=== PATIENT | female | born 1985 | race African-American/Black ===

== ENCOUNTER 2019-04-10 22:17 | Inpatient (IN) | payer OTHER ==
[2019-04-10] MEDS ORDERED: DEXTROSE 5%-LACTATED RINGERS 500 ML IV ONE (23:45)
[2019-04-11] MEDS ORDERED: DEXTROSE 5%-LACTATED RINGERS 500 ML IV ONE (00:45)
--- NOTE | 2019-04-11 01:43 | PDOC ---
Documentation entered by Ifrah Pandey SCRIBE, acting as scribe for Korina Mosquera MD. Korina Mosquera MD: This documentation has been prepared by the Katherin dorsey Sammi, SCRIBE, under my direction and personally reviewed by me in its entirety. I confirm that the documentation accurately reflects all work, treatment, procedures, and medical decision making performed by me. History of Present Illness - General Chief Complaint: Pain Stated Complaint: pergnant - History of Present Illness Initial Comments: 04/10/19 23:22 The patient is a 34 year old, 39 weeks , female who presents to the emergency department for evaluation pelvic cramping. The patient initially complains of thigh pain but proceeded to complain of pelvic cramping. Because the patient is 39 weeks , sent to L&D. Denies pelvic bleeding. Denies chest pain or shortness of breath. Denies nausea or vomiting. Past History - Past Medical History Allergies/Adverse Reactions: Allergies Allergy/AdvReac Type Severity Reaction Status Date / Time No Known Allergies Allergy Verified 04/10/19 23:27 Home Medications: Ambulatory Orders Pnv No.95/Ferrous Fum/Folic AC [ Vitamin Tablet] 1 tab PO DAILY COPD: No - Psycho Social/Smoking Cessation Hx Smoking History: Never smoked Review of Systems - Review of Systems Comments:: 04/10/19 23:24 GENERAL/CONSTITUTIONAL: No fever or chills. No weakness. CARDIOVASCULAR: No chest pain or shortness of breath. RESPIRATORY: No cough, wheezing, or hemoptysis. GASTROINTESTINAL: (+)abdominal cramping. No nausea, vomiting, diarrhea or constipation. GENITOURINARY: No dysuria, frequency, or change in urination. MUSCULOSKELETAL: No joint or muscle swelling or pain. No neck or back pain. SKIN: No rash NEUROLOGIC: No headache, vertigo, loss of consciousness, or change in strength/ sensation. *Physical Exam - Vital Signs Last Vital Signs Temp Pulse Resp BP Pulse Ox 98.5 F 88 19 120/65 100 04/10/19 22:18 04/10/19 22:18 04/10/19 22:18 04/10/19 22:18 04/10/19 22:18 - Physical Exam 04/10/19 23:26 seated in wheel chair, complaining of abdominal cramping GENERAL: Awake, alert, and fully oriented, in no acute distress HEAD: No signs of trauma EYES: PERRLA, EOMI, sclera anicteric, conjunctiva clear ENT: Auricles normal inspection, hearing grossly normal, nares patent, oropharynx clear without exudates. Moist mucosa LUNGS: Breath sounds equal, clear to auscultation bilaterally. HEART: Regular rate and rhythm, no murmurs, rubs or gallops ABDOMEN: (+)protuberant abdomen. EXTREMITIES: Normal range of motion, no edema. No clubbing or cyanosis. No cords, erythema, or tenderness NEUROLOGICAL: Cranial nerves II through XII grossly intact. Normal speech, normal gait SKIN: Warm, Dry, normal turgor, no rashes or lesions noted. ED Treatment Course - LABORATORY CBC & Chemistry Diagram: 04/11/19 02:45 04/11/19 02:45 Medical Decision Making - Medical Decision Making 04/11/19 01:46 This 34-year-old female who is 39 weeks presented initially stating that she has some thigh pain but very quickly she complained of pelvic cramping and was taken upstairs to labor and deliver imp: pelvic cramping/39 weeks / probable labor PLAN L and D Discharge - Discharge Information Problems reviewed: Yes Clinical Impression/Diagnosis: Abdominal discomfort Condition: Stable Disposition: HOME - Follow up/Referral - Patient Discharge Instructions - Post Discharge Activity
[2019-04-11] MEDS ORDERED: ACETAMINOPHEN 325 MG TABLET (FP) ONE (02:16)
[2019-04-11] MEDS ORDERED: ACETAMINOPHEN 325 MG TABLET (FP) PO ONE (02:30)
[2019-04-11] MEDS ORDERED: ELECTROLYTE-148 SOLN 500 ML IV ONE (02:45)
[2019-04-11] MEDS ORDERED: CITRIC ACID/SODIUM CITRATE 30 ML UNIT-DOSE CUP PO ONE (02:45)
[2019-04-11 03:01] LABS: BASO % 0.9 % (0-2.0); EOS % 0.6 % (0-4.5); HEMATOCRIT 35.7 % (32.4-45.2); HEMOGLOBIN 12.3 GM/dL (10.7-15.3); LYMPH % 28.7 % (8-40); MCH 31.9 pg (25.7-33.7); MCHC 34.5 g/dl (32.0-36.0); MEAN CELL VOLUME 92.5 fl (80-96); MEAN PLT VOLUME 10.6 fl (7.5-11.1); MONO % 9.3 % (3.8-10.2); NEUT % 60.5 % (42.8-82.8); PLATELET COUNT 183 K/MM3 (134-434); RBC 3.86 M/mm3 (3.60-5.2); RDW 13.9 % (11.6-15.6)
[2019-04-11 03:13] LABS: INR 0.88 (0.83-1.09); PROTHROMBIN TIME (PATIENT) 10.4 SEC (9.7-13.0)
[2019-04-11] MEDS ORDERED: ELECTROLYTE-148 SOLN 1,000 ML IV SCH (03:15)
[2019-04-11 03:16] LABS: ACTIVATED PTT 29.2 SECONDS (25.2-36.5)
[2019-04-11 03:23] VITALS: BMI 38.2
[2019-04-11 03:41] LABS: BLOOD UREA NITROGEN 5.6 mg/dL (7-18); CALCIUM 8.3 mg/dL (8.5-10.1); CREATININE 0.7 mg/dL (0.55-1.3); POTASSIUM 3.9 mmol/L (3.5-5.1)
[2019-04-11] MEDS ORDERED: ONDANSETRON 4 MG/2 ML VIAL IVPUSH PRN (04:34)
[2019-04-11] MEDS ORDERED: KETOROLAC TROMETHAMINE 30 MG/1 ML VIAL ONE (04:47)
[2019-04-11] MEDS ORDERED: DEXAMETHASONE SOD PHOSPHATE 4 MG/1 ML VIAL ONE (04:47)
[2019-04-11] MEDS ORDERED: OXYTOCIN 10 UNITS/ML VIAL ONE (04:47)
[2019-04-11] MEDS ORDERED: LIDO 2%/EPI 1:200000 PRESRVFRE (20 ML SDVIAL) ONE (05:19)
[2019-04-11] MEDS ORDERED: ceFAZolin SODIUM 1 GM VIAL ONE (05:24)
[2019-04-11] MEDS ORDERED: SODIUM CHLORIDE 0.9% P/F 10 ML VIAL IJ ONE (05:24)
[2019-04-11] MEDS ORDERED: SUCCINYLCHOLINE CHLORIDE 200 MG/10 ML SYRINGE ONE (05:27)
[2019-04-11] MEDS ORDERED: PROPOFOL 20 ML ONE (05:27)
[2019-04-11] MEDS ORDERED: PHENYLEPHRINE HCL 10 MG/1 ML SINGLE DOSE VIAL ONE ×2 (05:38)
[2019-04-11] MEDS ORDERED: LIDOCAINE HCL 2% 100 MG/5 ML DISP.SYRIN ONE (05:43)
[2019-04-11] MEDS ORDERED: MIDAZOLAM HCL 2 MG/2 ML SINGLE DOSE VIAL ONE (05:45)
--- NOTE | 2019-04-11 05:56 | PN ---
Progress Note (short form) - Note Progress Note: Attended Rpt C/S for this 34yrs old mother who presented to in labor. PNL- neg. NRFHT delivered - clear fluid, cried soon after suctioned/ dried cord 3V 9/9 CAN x 1 rtemains clinically stable on RA [place] well perfused EXAM: HEENT- Normocrphalic/ AFOF Chest B/L symm COR S1-S2 nl , Nl Female FROM Good tone and activity. RNBC watch for resp distrerss Encourage BF/ Bonding
[2019-04-11] MEDS ORDERED: oxyCODONE HCL 5 MG TABLET PO PRN (06:22)
[2019-04-11] MEDS ORDERED: BENZOCAINE 20% 57 GM BOTTLE TP PRN (06:22)
[2019-04-11] MEDS ORDERED: WITCH HAZEL 50% (TUCKS) 40 PAD/JAR PAD TP PRN (06:22)
[2019-04-11] MEDS ORDERED: diphenhydrAMINE HCL 25 MG CAPSULE (FP) PO PRN (06:22)
[2019-04-11] MEDS ORDERED: BENZOCAINE 28 GM HEMORRHOIDAL OINTMENT PR PRN (06:22)
[2019-04-11] MEDS ORDERED: METHYLERGONOVINE MALEATE 0.2 MG/1 ML AMP IM PRN (06:22)
--- NOTE | 2019-04-11 06:29 | HP ---
Past Medical History - Primary Care Physician PCP:: Jorge Jaramillo - Admission Chief Complaint: 38 weeks, labor, previous c/s, tachycardia History of Present Illness: 38.6 weeks, previous c/s,c/o contraction , cx 1 cm 70 vx -3 fhr cat 2 with tachycardia good BTBV , no rom ,no bleeding History Source: Patient Limitations to Obtaining History: No Limitations - Past Medical History ...: 2 ...Para: 1 ...Term: 1 ...: 0 ...Spon : 0 ...Induced : 0 ...Multiple Gestation: 0 ...LMP: 07/14/18 ... Weeks Gestation by Dates: 38.6 ...EDC by Dates: 04/20/19 - Past Surgical History Past Surgical History: Yes: Hx Myomectomy: No Hx Transabdominal Cerclage: No - Smoking History Smoking history: Never smoked Have you smoked in the past 12 months: No - Alcohol/Substance Use Hx Alcohol Use: No History of Substance Use: reports: None - Social History Usual Living Arrangement: Yes: With Spouse History of Recent Travel: No Home Medications - Allergies Allergies/Adverse Reactions: Allergies Allergy/AdvReac Type Severity Reaction Status Date / Time No Known Allergies Allergy Verified 04/10/19 23:27 - Home Medications Home Medications: Ambulatory Orders Pnv No.95/Ferrous Fum/Folic AC [ Vitamin Tablet] 1 tab PO DAILY Review of Systems - Review of Systems Constitutional: reports: No Symptoms Eyes: reports: No Symptoms HENT: reports: No Symptoms Neck: reports: No Symptoms Cardiovascular: reports: No Symptoms Respiratory: reports: No Symptoms Gastrointestinal: reports: No Symptoms Genitourinary: reports: No Symptoms Breasts: reports: No Symptoms Reported Musculoskeletal: reports: No Symptoms Integumentary: reports: No Symptoms Neurological: reports: No Symptoms Endocrine: reports: No Symptoms Hematology/Lymphatic: reports: No Symptoms Psychiatric: reports: No Symptoms Physical Exam - Maternity Vital Signs: Vital Signs Temperature 98.1 F 04/11/19 03:14 Pulse Rate 75 04/11/19 03:14 Respiratory Rate 20 04/11/19 03:14 Blood Pressure 123/62 04/11/19 03:14 O2 Sat by Pulse Oximetry (%) 100 04/10/19 22:18 Constitutional: Yes: Obese - Abdominal Exam/OB Fundal Height: 40 Number of Fetuses: Single Presentation: Vertex Contractions: Yes Regularity: Irregular Intensity: Moderate Monitor Mode: External Heart Rate Location: [facility] Category: II Accelerations: Non-Uniform Decelerations: None - Vaginal Exam/OB Vaginal Bleediing: No Speculum Exam: No Dilatation (cm): 1 Effacement (%): 70 Amniotic Membrane Status: Intact Presentation: Vertex/Position Station: -3 - Physical Exam Musculoskeletal: Yes: WNL Extremities: Yes: WNL Edema: Yes Edema: LLE: Trace, RLE: Trace Deep Tendon Reflex Grade: Normal +2 Psychiatric: Yes: Alert - Labs Lab Results: CBC, BMP 04/11/19 02:45 04/11/19 02:45 Hemorrhage Risk Assessment - Risk Factors Medium Risk Factors: Yes: Prior , uterine surgery,or multiple laparotomies Risk Score: 1 Risk Level: Medium Risk Problem List - Problems (1) with 38 completed weeks gestation Code(s): Z3A.38 - 38 WEEKS GESTATION OF (2) Previous section complicating Code(s): O34.219 - MATERNAL CARE FOR UNSP TYPE SCAR FROM PREVIOUS DEL (3) Labor established Code(s): INM4664 - (4) tachycardia Code(s): VAF8544 - (5) tachycardia Code(s): VWL9194 - Assessment/Plan admit for repeat c/s, risks discussed
[2019-04-11] MEDS ORDERED: OXYTOCIN 20 UNITS in 0.9% NS 20 UNIT/1,000 ML INFUS.BAG IV SCH (06:30)
--- NOTE | 2019-04-11 06:33 | OP ---
Operative Note - Note: Operative Date: 04/11/19 Pre-Operative Diagnosis: 38.6 weekks, previous c/s ,labor Operation: repeat LST c/s, lysis of pelvic adhesions Findings: live baby girl 9/9 .OP. cord around neck once , pelvic adhesions Surgeon: Jorge Jaramillo Electrical Engineering Drafting Officer: Main Asif Anesthesia: Epidural Specimens Removed: placenta Estimated Blood Loss (mls): 500 Drains & Tubes with Location: fowler Drains, Volume Out (mls): 200 Blood Volume Replaced (mls): 0 Fluid Volume Replaced (mls): 1,700 Operative Report Dictated: Yes
[2019-04-11] MEDS ORDERED: DEXTROSE 5%-LACTATED RINGERS 1,000 ML IV SCH (14:30)
[2019-04-11] MEDS: IBUPROFEN 800 MG/8 ML IJ IVPB PRN (19:33)
[2019-04-12] MEDS: IBUPROFEN 800 MG/8 ML IJ IVPB PRN (04:52)
--- NOTE | 2019-04-12 08:12 | OP ---
DATE OF OPERATION: 04/11/2019 PREOPERATIVE DIAGNOSIS: Pregnany at 39 weeks, previous section, request of repeat section. POSTOPERATIVE DIAGNOSIS: Pregnany at 39 weeks, previous section, request of repeat section. PROCEDURE PERFORMED: Repeat low-segment section and lysis of pelvic adhesions. SURGEON: Ebonie Jaramillo MD WHARF ATTENDANT: ADRIA Monzon ANESTHESIA: Epidural. ANESTHESIOLOGIST: ESTIMATED BLOOD LOSS: 500 mL. DESCRIPTION OF PROCEDURE: The patient was taken to the operating room and had adequate epigastric anesthesia. Abdomen and perineum were prepped and draped. A Pfannenstiel abdominal skin incision was made over the previous incision. The abdominal wall was cut layer by layer, until the peritoneum was exposed and entered. Upon entering the abdominal cavity, there were multiple pelvic and omental adhesions. The bladder was adherent to the anterior lower uterine segment. These adhesions were lysed with Metzenbaum scissors. The bladder was pushed down, and there were also 2 bands of adhesions. Each side of the pelvic area which was related to the peritoneum was lysed and omentum also was lysed from the left lateral part of the pelvic floor. Bowels were packed away. Then a low transverse uterine incision was made with a knife. The amniotic sac was entered. Clear fluid. Head was delivered from occiput posterior position. Cord around the next x1 reduced. Live baby was delivered, Apgars 9 and 9. The placenta was delivered manually. The uterine cavity was cleaned of all remaining tissue. The uterine incision was closed in 2 layers, the 1st layer with 0 Biosyn continuous suture and the 2nd layer with 0 Biosyn imbricating the 1st layer. The bladder flap was closed with 0 Biosyn continuous suture. Both tubes and ovaries were checked and were normal. No active bleeding was seen. All the lap, sponge and instrument counts were correct. Then the peritoneum was closed with 0 Biosyn continuous suture. The muscles were brought together with interrupted suture of 0 Biosyn. The fascia was closed with 0 Biosyn continuous suture, the subcutaneous fat with interrupted suture of 0 Biosyn, and the skin was closed with audrey. The patient tolerated the procedure well, and left the OR in good condition. EBONIE JARAMILLO M.D. [id number]
[2019-04-12 09:18] LABS: BASO % 0.4 % (0-2.0); EOS % 0.3 % (0-4.5); HEMATOCRIT 34.6 % (32.4-45.2); HEMOGLOBIN 11.8 GM/dL (10.7-15.3); LYMPH % 24.8 % (8-40); MCH 31.8 pg (25.7-33.7); MCHC 34.1 g/dl (32.0-36.0); MEAN CELL VOLUME 93.2 fl (80-96); MEAN PLT VOLUME 10.2 fl (7.5-11.1); MONO % 7.5 % (3.8-10.2); PLATELET COUNT 168 K/MM3 (134-434); RBC 3.71 M/mm3 (3.60-5.2); RDW 13.9 % (11.6-15.6); WHITE BLOOD COUNT 10.3 K/mm3 (4.0-10.0)
--- NOTE | 2019-04-12 09:44 | PN ---
Post Progress Note - Subjective Subjective: Patient without acute complaints. Reports tolerating oral intake without nausea or vomiting. Ambulating without dizziness. Denies fevers or chills. Pain well controlled with oral pain medication. without difficulty. Passing flatus. Post Day: 1 Type of Delivery: Primary C/S Vital Signs: Vital Signs Temperature 98.1 F 04/12/19 06:00 Pulse Rate 82 04/12/19 06:00 Respiratory Rate 20 04/12/19 07:00 Blood Pressure 110/60 04/12/19 06:00 O2 Sat by Pulse Oximetry (%) 99 04/11/19 07:29 Breast Exam: Yes: Soft Uterus: Yes: Fundus Firm Incision: Yes: Dressing dry and intact Abdomen/GI: Yes: Abdomen soft Lochia: Yes: Rubra Lochia, amount: Small Extremities: Yes: Calves non-tender Perineum: Yes: Intact Activity: Ambulating - Labs Labs: CBC WBC 10.3 K/mm3 (4.0-10.0) H 04/12/19 08:38 RBC 3.71 M/mm3 (3.60-5.2) 04/12/19 08:38 Hgb 11.8 GM/dL (10.7-15.3) 04/12/19 08:38 Hct 34.6 % (32.4-45.2) 04/12/19 08:38 MCV 93.2 fl (80-96) 04/12/19 08:38 MCH 31.8 pg (25.7-33.7) 04/12/19 08:38 MCHC 34.1 g/dl (32.0-36.0) 04/12/19 08:38 RDW 13.9 % (11.6-15.6) 04/12/19 08:38 Plt Count 168 K/MM3 (134-434) 04/12/19 08:38 MPV 10.2 fl (7.5-11.1) 04/12/19 08:38 Absolute Neuts (auto) 6.9 K/mm3 (1.5-8.0) 04/12/19 08:38 Neutrophils % 67.0 % (42.8-82.8) 04/12/19 08:38 Lymphocytes % 24.8 % (8-40) 04/12/19 08:38 Monocytes % 7.5 % (3.8-10.2) 04/12/19 08:38 Eosinophils % 0.3 % (0-4.5) 04/12/19 08:38 Basophils % 0.4 % (0-2.0) 04/12/19 08:38 Nucleated RBC % 0 % (0-0) 04/12/19 08:38 Assessment/Plan 34yo POD # 1 s/p c/section H/H stable Afebrile, VSS cont. Routine care Encourage ambulation d/c IVF
[2019-04-12] MEDS: ENOXAPARIN NA (PORCINE) 40 MG/0.4 ML DISP.SYRIN SQ SCH (10:36)
[2019-04-12] MEDS: IBUPROFEN 600 MG TABLET (FP) PO PRN ×2 (13:40→23:44)
[2019-04-12] MEDS: SIMETHICONE 80 MG TAB.CHEW (FP) PO PRN ×2 (13:40→23:44)
--- NOTE | 2019-04-12 14:03 | PN ---
Progress Note (short form) - Note Progress Note: Anesthesia Post op Pt seen and examined S:Alert and awake mild discomfort O Vital Signs Temperature 82 F L 04/12/19 09:00 Pulse Rate 82 04/12/19 09:00 Respiratory Rate 20 04/12/19 09:00 Blood Pressure 110/57 L 04/12/19 09:00 O2 Sat by Pulse Oximetry (%) 99 04/11/19 07:29 CBC, BMP 04/12/19 08:38 04/11/19 02:45 A/P: Current Active Problems Abdominal discomfort (Acute) tachycardia (Acute) tachycardia (Acute) Labor established (Acute) with 38 completed weeks gestation (Acute) Previous section complicating (Acute) s/p c section Doing well post op Continue current care Sven Alfaro MD
--- NOTE | 2019-04-12 15:30 | PATH ---
Surgical Pathology Report Patient Name: FAWN SPEAR Med. Rec. 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 Specimen(s) Received PLACENTA Clinical History Previous in labor, nonreassuring heart rate Final Diagnosis PLACENTA, DELIVERY: FOCALLY DISRUPTED THIRD TRIMESTER PLACENTA WITH THREE VESSEL UMBILICAL CORD AND UNREMARKABLE PLACENTAL MEMBRANES. Electronically Signed Sunny Echols M.D. Gross Description The specimen is received fresh labeled placenta and is a 452 gram, 23.0 x 15.5 x 2.3 cm. placenta with attached membranes and umbilical cord. The attached membranes are castillo, translucent with focal opacities and insert marginally. The umbilical cord measures 20 cm. in length and averages 1.2 cm. in diameter. The cord inserts eccentrically, 6 cm. to the nearest margin. No true knots or strictures are identified. Cut surface of the umbilical cord reveals 3 vessels. The surface is alegria-blue with minimal fibrin deposition and appropriate caliber vessels. The maternal surface is red-brown with focal defects. Sectioning reveals red-brown, spongy parenchyma. No lesions are identified. Corporate Logistics Manager sections are submitted in three cassettes as follows: 1- membrane rolls and umbilical cord; 2-3- full thickness sections of placenta. /04/11/2019 saudi/04/11/2019
[2019-04-12] MEDS: BISACODYL 10 MG SUPP.RECT RC PRN (15:53)
[2019-04-12] MEDS: ACETAMINOPHEN 325 MG TABLET (FP) PO PRN (23:44)
[2019-04-13] MEDS: oxyCODONE HCL 5 MG TABLET PO PRN ×3 (08:16→21:48)
[2019-04-13] MEDS: SIMETHICONE 80 MG TAB.CHEW (FP) PO PRN ×3 (08:17→21:34)
[2019-04-13] MEDS: ACETAMINOPHEN 325 MG TABLET (FP) PO PRN ×3 (08:17→21:34)
[2019-04-13] MEDS: ENOXAPARIN NA (PORCINE) 40 MG/0.4 ML DISP.SYRIN SQ SCH (11:57)
[2019-04-13] MEDS: BISACODYL 10 MG SUPP.RECT RC PRN (13:41)
--- NOTE | 2019-04-13 16:27 | PN ---
Post Progress Note - Subjective Subjective: Patient without acute complaints. She has some incisional pain. Reports tolerating oral intake without nausea or vomiting. Ambulating without dizziness. Denies fevers or chills. Pain well controlled with oral pain medication. Pumping/breast feeding without issue. Passing flatus, no BM. Post Day: 2 Type of Delivery: Primary C/S Vital Signs: Vital Signs Temperature 98.1 F 04/13/19 09:00 Pulse Rate 83 04/13/19 09:00 Respiratory Rate 18 04/13/19 09:00 Blood Pressure 109/52 L 04/13/19 09:00 O2 Sat by Pulse Oximetry (%) 99 04/11/19 07:29 Breast Exam: Yes: Soft Uterus: Yes: Fundus Firm, Fundus below umbilicus, Non-tender Incision: Yes: Diana intact Abdomen/GI: Yes: Abdomen soft, Passing flatus, Tolerating PO Lochia: Yes: Rubra Lochia, amount: Small Extremities: Yes: Calves non-tender, Edema Perineum: Yes: Intact Activity: Ambulating - Labs Labs: CBC WBC 10.3 K/mm3 (4.0-10.0) H 04/12/19 08:38 RBC 3.71 M/mm3 (3.60-5.2) 04/12/19 08:38 Hgb 11.8 GM/dL (10.7-15.3) 04/12/19 08:38 Hct 34.6 % (32.4-45.2) 04/12/19 08:38 MCV 93.2 fl (80-96) 04/12/19 08:38 MCH 31.8 pg (25.7-33.7) 04/12/19 08:38 MCHC 34.1 g/dl (32.0-36.0) 04/12/19 08:38 RDW 13.9 % (11.6-15.6) 04/12/19 08:38 Plt Count 168 K/MM3 (134-434) 04/12/19 08:38 MPV 10.2 fl (7.5-11.1) 04/12/19 08:38 Absolute Neuts (auto) 6.9 K/mm3 (1.5-8.0) 04/12/19 08:38 Neutrophils % 67.0 % (42.8-82.8) 04/12/19 08:38 Lymphocytes % 24.8 % (8-40) 04/12/19 08:38 Monocytes % 7.5 % (3.8-10.2) 04/12/19 08:38 Eosinophils % 0.3 % (0-4.5) 04/12/19 08:38 Basophils % 0.4 % (0-2.0) 04/12/19 08:38 Nucleated RBC % 0 % (0-0) 04/12/19 08:38 Assessment/Plan POD#2 s/p repeat LTC/S doing well, stable, afebrile. Asymptomatic for anemia. Post op care reviewed. Continue routine care. Ambulation encouraged Advance diet as tolerated.
[2019-04-13] MEDS: SENNOSIDES/DOCUSATE COMBO (SENNA PLUS) TABLET (UD) PO PRN (21:34)
[2019-04-14] MEDS ORDERED: oxyCODONE HCL 5 MG TABLET PO PRN ×3 (08:04→08:50)
--- NOTE | 2019-04-14 08:35 | PN ---
Post Progress Note - Subjective Subjective: Patient without acute complaints. Reports tolerating oral intake without nausea or vomiting. Ambulating without dizziness. Denies fevers or chills. Pain well controlled with oral pain medication. without difficulty. Passing flatus. Post Day: 3 Type of Delivery: Primary C/S Vital Signs: Vital Signs Temperature 98.9 F 04/13/19 22:00 Pulse Rate 84 04/13/19 22:00 Respiratory Rate 20 04/13/19 22:00 Blood Pressure 115/84 04/13/19 22:00 O2 Sat by Pulse Oximetry (%) 99 04/11/19 07:29 Breast Exam: Yes: Soft Uterus: Yes: Fundus Firm, Fundus below umbilicus Incision: Yes: Diana intact Abdomen/GI: Yes: Abdomen soft, Abdominal Distention (+ soft), Tender (incisional ), Passing flatus, Tolerating PO Lochia: Yes: Rubra Lochia, amount: Moderate Extremities: Yes: Calves non-tender, Edema (+1) Activity: Ambulating - Labs Labs: CBC WBC 10.3 K/mm3 (4.0-10.0) H 04/12/19 08:38 RBC 3.71 M/mm3 (3.60-5.2) 04/12/19 08:38 Hgb 11.8 GM/dL (10.7-15.3) 04/12/19 08:38 Hct 34.6 % (32.4-45.2) 04/12/19 08:38 MCV 93.2 fl (80-96) 04/12/19 08:38 MCH 31.8 pg (25.7-33.7) 04/12/19 08:38 MCHC 34.1 g/dl (32.0-36.0) 04/12/19 08:38 RDW 13.9 % (11.6-15.6) 04/12/19 08:38 Plt Count 168 K/MM3 (134-434) 04/12/19 08:38 MPV 10.2 fl (7.5-11.1) 04/12/19 08:38 Absolute Neuts (auto) 6.9 K/mm3 (1.5-8.0) 04/12/19 08:38 Neutrophils % 67.0 % (42.8-82.8) 04/12/19 08:38 Lymphocytes % 24.8 % (8-40) 04/12/19 08:38 Monocytes % 7.5 % (3.8-10.2) 04/12/19 08:38 Eosinophils % 0.3 % (0-4.5) 04/12/19 08:38 Basophils % 0.4 % (0-2.0) 04/12/19 08:38 Nucleated RBC % 0 % (0-0) 04/12/19 08:38 Assessment/Plan 34 yo POD # 3 s/p primary CD, afebrile, vital signs stable, doing well 1. Continue routine postoperative care. 2. Encourage ambulation and incentive spirometer use 3. Continue oral pain medication 4. Anticipate discharge home postoperative day # 4
[2019-04-14 08:56] LABS: BASO % 0.7 % (0-2.0); EOS % 1.8 % (0-4.5); HEMATOCRIT 32.6 % (32.4-45.2); LYMPH % 32.4 % (8-40); MCH 31.5 pg (25.7-33.7); MCHC 33.8 g/dl (32.0-36.0); MEAN CELL VOLUME 93.2 fl (80-96); MEAN PLT VOLUME 10.1 fl (7.5-11.1); MONO % 8.9 % (3.8-10.2); NEUT % 56.2 % (42.8-82.8); PLATELET COUNT 205 K/MM3 (134-434); RDW 13.9 % (11.6-15.6); WHITE BLOOD COUNT 7.3 K/mm3 (4.0-10.0)
[2019-04-14] MEDS: oxyCODONE HCL 5 MG TABLET PO PRN ×3 (09:04→21:37)
[2019-04-14] MEDS: SENNOSIDES/DOCUSATE COMBO (SENNA PLUS) TABLET (UD) PO PRN ×2 (09:05→21:33)
[2019-04-14] MEDS: IBUPROFEN 600 MG TABLET (FP) PO PRN ×2 (09:06→15:13)
[2019-04-14] MEDS: BISACODYL 10 MG SUPP.RECT RC PRN (09:07)
[2019-04-14] MEDS: SIMETHICONE 80 MG TAB.CHEW (FP) PO PRN ×3 (09:07→21:33)
[2019-04-14] MEDS: ENOXAPARIN NA (PORCINE) 40 MG/0.4 ML DISP.SYRIN SQ SCH (09:07)
[2019-04-14] MEDS: ACETAMINOPHEN 325 MG TABLET (FP) PO PRN (21:33)
[2019-04-15] MEDS: ACETAMINOPHEN 325 MG TABLET (FP) PO PRN (03:50)
[2019-04-15] MEDS: oxyCODONE HCL 5 MG TABLET PO PRN (03:51)
--- NOTE | 2019-04-15 08:25 | PN ---
Post Progress Note - Subjective Subjective: Patient without acute complaints. Reports tolerating oral intake without nausea or vomiting. Ambulating without dizziness. Denies fevers or chills. Pain well controlled with oral pain medication. without difficulty. Passing flatus. Post Day: 4 Type of Delivery: Primary C/S Vital Signs: Vital Signs Temperature 98.3 F 04/14/19 21:42 Pulse Rate 84 04/14/19 21:42 Respiratory Rate 20 04/14/19 21:42 Blood Pressure 95/58 L 04/14/19 21:42 O2 Sat by Pulse Oximetry (%) 99 04/11/19 07:29 Breast Exam: Yes: Soft Uterus: Yes: Fundus Firm, Fundus below umbilicus Incision: Yes: [place] intact. No: Redness, Oozing Abdomen/GI: Yes: Abdomen soft, Abdominal Distention (mild soft), Tender ( incisional), Passing flatus, Tolerating PO Lochia: Yes: Rubra Lochia, amount: Moderate Extremities: Yes: Calves non-tender, Edema (tr) Activity: Ambulating - Labs Labs: CBC WBC 7.3 K/mm3 (4.0-10.0) 04/14/19 08:40 RBC 3.50 M/mm3 (3.60-5.2) L 04/14/19 08:40 Hgb 11.0 GM/dL (10.7-15.3) 04/14/19 08:40 Hct 32.6 % (32.4-45.2) 04/14/19 08:40 MCV 93.2 fl (80-96) 04/14/19 08:40 MCH 31.5 pg (25.7-33.7) 04/14/19 08:40 MCHC 33.8 g/dl (32.0-36.0) 04/14/19 08:40 RDW 13.9 % (11.6-15.6) 04/14/19 08:40 Plt Count 205 K/MM3 (134-434) D 04/14/19 08:40 MPV 10.1 fl (7.5-11.1) 04/14/19 08:40 Absolute Neuts (auto) 4.1 K/mm3 (1.5-8.0) 04/14/19 08:40 Neutrophils % 56.2 % (42.8-82.8) 04/14/19 08:40 Lymphocytes % 32.4 % (8-40) D 04/14/19 08:40 Monocytes % 8.9 % (3.8-10.2) 04/14/19 08:40 Eosinophils % 1.8 % (0-4.5) D 04/14/19 08:40 Basophils % 0.7 % (0-2.0) 04/14/19 08:40 Nucleated RBC % 0 % (0-0) 04/14/19 08:40 Assessment/Plan 34 yo POD # 3 s/p primary CD, afebrile, vital signs stable, doing well 1. Patient stable for discharge home today. 2. Patient encouraged to contact MD for: - Severe pain not controlled by oral pain medication - Fevers or chills - Nausea or vomiting, intolerance of oral intake - Incision redness, tenderness or discharge 3. Patient to follow up in office in 1-2 weeks for incision check, 4-6 weeks for visit
[2019-04-15] MEDS: ENOXAPARIN NA (PORCINE) 40 MG/0.4 ML DISP.SYRIN SQ SCH (10:22)
[2019-04-15] MEDS: IBUPROFEN 600 MG TABLET (FP) PO PRN (10:22)
[2019-04-15] MEDS: SIMETHICONE 80 MG TAB.CHEW (FP) PO PRN (10:22)
[2019-04-15 11:35] VITALS: BP 110/68; PULSE 86; TEMP 98.6
== END 2019-04-15 13:40 | disposition home or self-care (01) | DRG 788 ==
LOC: JER 22:17 → JLDR 04-11 02:45 → J3W 04-11 08:00
PROVIDERS: ADMIT Obstetrics & Gynecology; ATTEND Obstetrics & Gynecology
PROC: 10D00Z1 Extraction of Products of Conception, Low, Open Approach (ICD-10-PCS; principal; 2019-04-11)
PROC: 0DNW0ZZ Release Peritoneum, Open Approach (ICD-10-PCS; 2019-04-11)
DX: O34.211 Maternal care for low transverse scar from previous cesarean delivery (principal); N85.8 Other specified noninflammatory disorders of uterus; O76 Abnormality in fetal heart rate and rhythm complicating labor and delivery; O99.02 Anemia complicating childbirth; Z37.0 Single live birth; O99.214 Obesity complicating childbirth; Z3A.38 38 weeks gestation of pregnancy; O99.89 Other specified diseases and conditions complicating pregnancy, childbirth and the puerperium; N73.6 Female pelvic peritoneal adhesions (postinfective)
CPT/HCPCS: 36415; 36600; 80048; 82803; 85025; 85610; 85730; 86593; 86850; 86900; 86901; 87389; 88307-TC; 99281-25

== ENCOUNTER 2021-12-23 10:29 | Emergency (ER) | payer BC, OTHER ==
[2021-12-23 10:33] VITALS: TEMP 97.4; BMI 30.4
[2021-12-23] MEDS ORDERED: FAMOTIDINE 20 MG/50 ML IVPB 20 MG/50 ML MG IVPB ONE ×2 (11:03→11:16)
[2021-12-23] MEDS ORDERED: SODIUM CHLORIDE 0.9% 500 ML INFUS.BAG IV ONE (11:03)
[2021-12-23] MEDS ORDERED: ACETAMINOPHEN 1000 MG/100 ML BAG IVPB ONE (11:03)
[2021-12-23] MEDS ORDERED: ONDANSETRON 4 MG/2 ML VIAL IVPUSH ONE ×2 (11:06→14:46)
[2021-12-23] MEDS ORDERED: ACETAMINOPHEN INJECTION 100 ML IVPB ONE (11:15)
[2021-12-23] MEDS ORDERED: ONDANSETRON 4 MG/2 ML VIAL ONE ×2 (11:42→14:53)
[2021-12-23 11:58] LABS: BASO % 0.1 % (0-2.0); HEMATOCRIT 44.5 % (32.4-45.2); LYMPH % 5.5 % (8-40); MCH 30.5 pg (25.7-33.7); MCHC 33.8 g/dl (32.0-36.0); MEAN CELL VOLUME 90.3 fl (80-96); MEAN PLT VOLUME 12.4 fl (7.5-11.1); MONO % 6.7 % (3.8-10.2); NEUT % 87.7 % (42.8-82.8); PLATELET COUNT 144 10^3/uL (134-434); RBC 4.92 M/mm3 (3.60-5.2); RDW 13.5 % (11.6-15.6); WHITE BLOOD COUNT 13.6 K/mm3 (4.0-10.0)
[2021-12-23 12:00] LABS: INR 1.2 (0.83-1.09); PROTHROMBIN TIME (PATIENT) 13.8 SEC (9.7-13.0)
[2021-12-23 12:02] LABS: ACTIVATED PTT 26.2 SECONDS (25.2-36.5)
[2021-12-23 12:12] LABS: CHLORIDE 102 mmol/L (98-107); SODIUM 146 mmol/L (136-145)
[2021-12-23 12:14] LABS: CALCIUM 10.5 mg/dL (8.5-10.1)
[2021-12-23 12:15] LABS: ALBUMIN 3.5 g/dl (3.4-5.0); ANION GAP 16 MMOL/L (8-16); BLOOD UREA NITROGEN 32.2 mg/dL (7-18); CO2 28 mmol/L (21-32); GLUCOSE,RANDOM 178 mg/dL (74-106); LIPASE 854 U/L (73-393)
[2021-12-23 12:17] LABS: BILIRUBIN,DIRECT 1.6 mg/dL (0.0-0.2); SGOT/AST 266 U/L (15-37); SGPT/ALT 600 U/L (13-61)
[2021-12-23 12:18] LABS: LACTIC ACID 3.1 mmol/L (0.4-2.0)
[2021-12-23] MEDS ORDERED: SODIUM CHLORIDE 1,000 ML IV ONE (12:18)
[2021-12-23 12:19] LABS: BILIRUBIN,TOTAL 2.2 mg/dL (0.2-1); TOT PROT 9.5 g/dl (6.4-8.2)
[2021-12-23 12:20] LABS: ALK PHOS 130 U/L (45-117)
[2021-12-23 13:04] LABS: LDH 337 U/L (84-246)
[2021-12-23 13:52] LABS: VENOUS BASE EXCESS -3.2 mmol/L (-2-2); VENOUS O2 SATURATION 54.3 % (70-80); VENOUS PCO2 40.1 mmHg (38-52); VENOUS PH 7.358 (7.310-7.410)
[2021-12-23 14:21] LABS: LACTIC ACID 4.2 mmol/L (0.4-2.0)
[2021-12-23] MEDS ORDERED: HEPARIN INFUSION - 25,000 UNITS/500 ML INFUS.BAG IVPB ONE (17:56)
[2021-12-23] MEDS ORDERED: HEPARIN NA (PORCINE) 5,000 UNITS/ML 1ML VIAL IVPUSH ONE (17:56)
[2021-12-23] MEDS ORDERED: HEPARIN NA (PORCINE) 5,000 UNITS/ML 1ML VIAL ONE (17:56)
[2021-12-23] MEDS ORDERED: HEPARIN - 25,000 UNIT in SODIUM CHLORIDE 495 ML IV SCH (18:00)
[2021-12-23] MEDS ORDERED: HEPARIN NA (PORCINE) 5,000 UNITS/ML 1ML VIAL IVPUSH PRN ×2 (18:42→18:43)
[2021-12-23] MEDS ORDERED: HEPARIN INFUSION - 25,000 UNITS/500 ML INFUS.BAG IVPB SCH (18:45)
[2021-12-23 19:37] VITALS: PULSE 151; RESP 23
[2021-12-23 19:38] VITALS: BP 107/93
[2021-12-23 19:47] LABS: BLOOD UREA NITROGEN 23.9 mg/dL (7-18)
[2021-12-23 19:48] LABS: HEMATOCRIT 36.8 % (32.4-45.2); HEMOGLOBIN 12.3 GM/dL (10.7-15.3); MCH 30.5 pg (25.7-33.7); MCHC 33.5 g/dl (32.0-36.0); MEAN CELL VOLUME 90.8 fl (80-96); MEAN PLT VOLUME 12.2 fl (7.5-11.1); PLATELET COUNT 120 10^3/uL (134-434); RBC 4.05 M/mm3 (3.60-5.2); RDW 13.2 % (11.6-15.6); WHITE BLOOD COUNT 14.4 K/mm3 (4.0-10.0)
[2021-12-23 19:50] LABS: CREATININE 0.8 mg/dL (0.55-1.3)
[2021-12-23 19:51] LABS: BILIRUBIN,TOTAL 1.9 mg/dL (0.2-1)
[2021-12-23 19:58] LABS: ALBUMIN 2.6 g/dl (3.4-5.0); CALCIUM 8.8 mg/dL (8.5-10.1); LACTIC ACID 3.5 mmol/L (0.4-2.0)
[2021-12-23 21:03] LABS: PLATELET ESTIMATE DECREASED
[2021-12-24 15:25] LABS: GAMMA GLUTAMYL TRANSPEPTIDASE 280 U/L (5-85); MAGNESIUM 2.8 mg/dL (1.8-2.4)
[2021-12-24 15:29] LABS: PHOSPHOROUS 4.2 mg/dL (2.5-4.9)
[2021-12-24 15:34] LABS: N-TERMINAL BNP 74.6 pg/ml (5-125)
== END 2021-12-23 19:37 | disposition short-term general hospital (02) ==
LOC: JER 10:29
PROC: 3E0333Z Introduction of Anti-inflammatory into Peripheral Vein, Percutaneous Approach (ICD-10-PCS; principal; 2021-12-23)
PROC: 3E033GC Introduction of Other Therapeutic Substance into Peripheral Vein, Percutaneous Approach (ICD-10-PCS; 2021-12-23)
PROC: 3E033GC Introduction of Other Therapeutic Substance into Peripheral Vein, Percutaneous Approach (ICD-10-PCS; 2021-12-23)
PROC: 3E033GC Introduction of Other Therapeutic Substance into Peripheral Vein, Percutaneous Approach (ICD-10-PCS; 2021-12-23)
PROC: 3E033GC Introduction of Other Therapeutic Substance into Peripheral Vein, Percutaneous Approach (ICD-10-PCS; 2021-12-23)
PROC: 3E033GC Introduction of Other Therapeutic Substance into Peripheral Vein, Percutaneous Approach (ICD-10-PCS; 2021-12-23)
PROC: 3E033GC Introduction of Other Therapeutic Substance into Peripheral Vein, Percutaneous Approach (ICD-10-PCS; 2021-12-23)
PROC: 3E033GC Introduction of Other Therapeutic Substance into Peripheral Vein, Percutaneous Approach (ICD-10-PCS; 2021-12-23)
PROC: 3E033GC Introduction of Other Therapeutic Substance into Peripheral Vein, Percutaneous Approach (ICD-10-PCS; 2021-12-23)
PROC: 3E0337Z Introduction of Electrolytic and Water Balance Substance into Peripheral Vein, Percutaneous Approach (ICD-10-PCS; 2021-12-23)
DX: O88.811 Other embolism in pregnancy, first trimester (principal); O26.891 Other specified pregnancy related conditions, first trimester; I26.09 Other pulmonary embolism with acute cor pulmonale; Z3A.08 8 weeks gestation of pregnancy
CPT/HCPCS: 36415; 71275-TC; 76705-TC; 76817-TC; 80048; 80053; 80076; 82140; 82550; 82803; 82977; 83010; 83605; 83615; 83690; 83735; 83880; 84100; 84439; 84443; 84481; 84482; 84702; 84703; 85025; 85379; 85610; 85730; 93005; 93010; 99285-25; C9803-CS; J1644; Q9967; U0003; U0005